=== PATIENT | male | born 1980 | race Two or more races ===

== ENCOUNTER 2016-10-11 17:04 | Inpatient (IN) | payer OTHER ==
[~2016-10-11] VITALS: Ht 167.6 cm; Wt 96.4 kg
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
[2016-10-11 17:28] LABS: BASOPHIL % 0.3 %; EOSINOPHIL # 0.2 K/uL (0.0-0.5); MPV 9.8 fl (9.4-12.4); NRBC % 0 /100WBC (0-0.00); RDW-CV 13.2 % (11.9-14.6)
[2016-10-11 18:03] LABS: BICARBONATE 23.7 mmol/L (18.0-23.0); PCO2 47 mmHg (35-45); PO2 58 mmHg (80-90); POTASSIUM 3.3 mEq/L (3.7-5.1); SODIUM 136 mEq/L (135-145)
[2016-10-11 18:18] LABS: INR - (THERAPEUTIC) 1.07 (0.92-1.07); PROTIME 11.2 SECONDS (9.8-11.4); PTT 22 SECONDS (25-32)
[2016-10-11 18:26] LABS: HEMOGLOBIN 12.7 g/dL (12.0-17.0); MCH 31.3 pg (27.0-34.0); RBC 4.06 M/uL (4.00-6.00); WBC 22.9 K/uL (4.0-11.0)
[2016-10-11 18:27] LABS: HEMATOCRIT 37.9 % (37.0-53.0); MCHC 33.5 gm/dL (32.0-36.5); MCV 93.3 fl (83.0-98.0)
[2016-10-11 18:28] LABS: LYMPHOCYTE # 2.5 K/uL (0.8-4.0); NEUTROPHIL # (ANC) 18.3 K/uL (1.4-9.0); NEUTROPHIL % 79.8 %; PLATELET COUNT 295 K/uL (150-450)
[2016-10-11 18:29] LABS: BASOPHIL # 0.1 K/uL (0.0-0.2); IMMATURE GRANULOCYTE # 0.2 K/uL (0.0-0.3); LYMPHOCYTE % 10.8 %; MONOCYTE # 1.7 K/uL (0.0-1.0); MONOCYTE % 7.3 %
[2016-10-11 18:30] LABS: IMMATURE GRANULOCYTE % 0.8 %
[2016-10-11 18:32] LABS: ANION GAP 7.3 (10.0-19.0); BLOOD UREA NITROGEN 22 mg/dL (6-24); CHLORIDE 107 mMol/L (96-110); CREATININE 1.3 mg/dL (0.6-1.3)
--- NOTE | 2016-10-12 05:52 | NUR ---
Significant Event: A/O, FORGETFUL BUT IMPROVING. POSSIBLE CONCUSSION. FOLLOWS ALL COMMANDS, MOVES ALL EXTREMITIES. VSS. 2L O2, ATTEMPTED TO WEAN HOWEVER PATIENT DESATTED TO 80% WHEN SLEEPING. ETCO2 ON, 37-42. LUNG SOUNDS CLEAR/DIM. HAS ONLY TAKE WATER FOR PO INTAKE, TOLERATING WELL. NO BM OVERNIGHT. GOOD UOP FROM [facility]. MORPHINE SEMICONDUCTOR DIES LOADER 2MG DEMAND WITH 8 MINUTE LOCKOUT. Follow up: WILL DECREASE FLUIDS TO TKO AFTER THIS BAG D/T PATIENT IMPROVING PO INTAKE.
[2016-10-12 06:18] LABS: BASOPHIL % 0.2 %; HEMATOCRIT 33.1 % (37.0-53.0); HEMOGLOBIN 10.9 g/dL (12.0-17.0); IMMATURE GRANULOCYTE % 0.4 %; LYMPHOCYTE # 0.9 K/uL (0.8-4.0); MCH 31.7 pg (27.0-34.0); MCHC 32.9 gm/dL (32.0-36.5); MCV 96.2 fl (83.0-98.0); MONOCYTE # 1.2 K/uL (0.0-1.0); NEUTROPHIL # (ANC) 8.9 K/uL (1.4-9.0); NEUTROPHIL % 80.4 %; NRBC % 0 /100WBC (0-0.00); PLATELET COUNT 223 K/uL (150-450); RBC 3.44 M/uL (4.00-6.00); RDW-CV 13.4 % (11.9-14.6); WBC 11.1 K/uL (4.0-11.0)
--- NOTE | 2016-10-12 19:29 | NUR ---
Significant Event: A/O X3, @ bedside entire shift, IV TKO L)FA, saline lock L)AC, 2 assist/gait belt/walker, up in chair all shift, stands @ bedside. RLE immobilizer on/stockinette drsg D/I, RUE ralph wrap/splint D/I, elevated on 2 pillows, edema to RUE, LLE lower drsg D/I, LLE upper drsg saturated w/ bloody drng, aware. drsg reinforced, CSM intact to all extremities. mason removed at 1430, no void yet, fair appetite, dozes when not interacting with staff or family, WASTE TRANSPORTATION TECHNICIAN morphine 2mg/8min lockout. resp. shallow, encouraged to use Incentive spirometry. o2 2l/nc, multiple abrasions/ecchymotic areas. neurologically intact. Follow up: NPO after MN for RUE surgery Thursday, needs consents signed.
[2016-10-13 06:23] LABS: HEMATOCRIT 24.1 % (37.0-53.0)
--- NOTE | 2016-10-13 07:24 | NUR ---
Significant Event: A/O. HR 50-70'S. SBP 90-120'S. AFEBRILE. WEANED TO 1L. HYPO BOWEL SOUNDS THIS AM. NO BM. NPO AT MIDNIGHT. VOID PER URINAL. STOOD WITH 2PA, TRANSFERED TO BED. CONTINUES WITH MS AIR EXPORT COORDINATOR, 8 ATTEMPTS, 5 DELIVERED. Follow up: ORIF OF R) ULNAR/RADIAL FX.
--- NOTE | 2016-10-13 13:40 | NUR ---
Patient in OR did not see him. Per demographics he lives in [place] with his . Will follow.
--- NOTE | 2016-10-13 15:00 | NUR ---
Significant Event:A/O X 3. Ambulates with hemiwalker 1 assist with gait belt. Up to the chair today and back to bed to prepare for OR. Reports no numbnness or tingling to any extremity. Follow up:
[2016-10-14 05:01] LABS: BASOPHIL % 0.3 %; EOSINOPHIL # 0.2 K/uL (0.0-0.5); EOSINOPHIL % 2.1 %; HEMATOCRIT 23.8 % (37.0-53.0); IMMATURE GRANULOCYTE % 0.4 %; LYMPHOCYTE # 1.5 K/uL (0.8-4.0); LYMPHOCYTE % 20.7 %; MCV 96.4 fl (83.0-98.0); MONOCYTE # 0.6 K/uL (0.0-1.0); MONOCYTE % 8.2 %; MPV 9.8 fl (9.4-12.4); NEUTROPHIL # (ANC) 4.9 K/uL (1.4-9.0); NEUTROPHIL % 68.3 %; NRBC % 0 /100WBC (0-0.00); RDW-CV 13.6 % (11.9-14.6); WBC 7.1 K/uL (4.0-11.0)
[2016-10-14 05:02] LABS: HEMOGLOBIN 7.8 g/dL (12.0-17.0); MCH 31.6 pg (27.0-34.0); MCHC 32.8 gm/dL (32.0-36.5); PLATELET COUNT 173 K/uL (150-450); RBC 2.47 M/uL (4.00-6.00)
[2016-10-14 05:19] LABS: ANION GAP 8.1 (10.0-19.0); BLOOD UREA NITROGEN 16 mg/dL (6-24); CALCIUM 7.6 mg/dL (8.5-10.5); CHLORIDE 109 mMol/L (96-110); CO2 28 mMol/L (22-32); POTASSIUM 4.1 mMol/L (3.7-5.1); SODIUM 141 mMol/L (135-145)
[2016-10-14 05:20] LABS: PHOSPHORUS 1.8 mg/dL (2.5-4.9)
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
--- NOTE | 2016-10-14 17:50 | NUR ---
Significant Event: Alert and oriented. Vital signs stable. O2 weaned off. Denies numbness/tingling. Ambulates short distances with platform walker and 1PA. Pain controlled with Percocet PRN. Good PO intake. Family present most of the day. Transferred to [address] [place] [address] at 1730. Follow up: continue
--- NOTE | 2016-10-15 04:51 | NUR ---
Significant Event: Alert/oriented x3. spent the night. VSS. CSM WNL. Splint and sling to right arm, ice applied. WBAT, 1 assist ambulation. Bilateral leg dressings have gauze and paper tape, little drainage. Room air. Saline locks in left antecubital and left posterior forearm. Morphine 2 mg IVP at 1847, 2345, 0217; 2 Percocets at 2110, 0217; Valium 5 mg at 2345. Voided well per bathroom, 1 small BM. Bilateral foot pumps. Follow up:
[2016-10-15 06:04] LABS: HEMATOCRIT 22.9 % (37.0-53.0)
[2016-10-15 06:05] LABS: HEMOGLOBIN 7.4 g/dL (12.0-17.0)
--- NOTE | 2016-10-15 09:00 | NUR ---
Made referral to Tess with [employer] for a Medicaid application. 1410 Introduced self/role to patient and his family, including the sister he plans to discharge home with. Needs a platform walker but no other DME. They know where to get one. I did explain it would have to be purchased privately or rented. Then we started to talk about Medicaid. Sister was under the impression they were on the top of the Medicaid list for review. I explained it generally take 1-2 months for approval and he would not be here that long. She is under the impression he will stay here until Medicaid goes thru. I will visit with Shaun again. She will be back tomorrow. Added my name to his marker board. 1420 Updated Tess, she will call sister because their is no application in the Medicaid system. 1440 Tess is meeting with the sister tomorrow. Will apply for disability and Medicaid but will take possible months to complete if he is even approved.
--- NOTE | 2016-10-15 16:56 | NUR ---
Pt alert and oriented. He has been up with assist standby with platform walker to bathroom. Has intact dressing Rt arm.Numbness and tingling Rt fingers. Dressing Rt knee changed and angus. Dressing Rt ankle changed, area swollen-stapled, drains sero-sang. Dressings x2 changed left hip. Distal dressing left hip has sero-sang drng on it. Dressing femur changed and angus and dry and intact. Pt CSM WNL lower extremities. Ice to Rt arm at times. Percocet 2 tabs x2 last at 1430. Pt voids well.
--- NOTE | 2016-10-16 04:20 | NUR ---
Significant Event: Alert/oriented x3. Pt requested he needed more sleep tonight. spent the night. Standby assist with platform walker to bathroom. Dressing to right arm intact, ice applied. Numbness/tingling right fingers. Dressing at right knee C/D/I, changed yesterday on day shift. Dressing right ankle C/D/I, changed yesterday on day shift. Dressings x2 on left hip has marked serosanguinous drainage. Dressing to femur changed yesterday on day shift - C/D/I. CSM WNL lower extremities. Voids well per bathroom. Saline locks at left antecubital and left posterior forearm. Valium 5 mg at 2251; 2 Percocets at 2251. Pt said pain is "better" tonight than yesterday. Has slept most of night since 1900. Bilateral foot pumps. VSS on room air. Follow up:
[2016-10-16 05:37] LABS: HEMATOCRIT 24.1 % (37.0-53.0)
--- NOTE | 2016-10-16 09:06 | NUR ---
PT SCREENED D/T LOS. EST NEEDS: 1700 KCALS, 77 GM PROTEIN, 1 ML/KCAL FLUIDS. PT IS EATING WELL. NO NUTRITION-RELATED DX IDENTIFIED. WILL ASSIST NEEDED.
--- NOTE | 2016-10-16 14:30 | NUR ---
Spoke to Sachi, eTss is to meet with them this afternoon. She will call me after that meeting. 1530 Tess let me know sister forgot so they will meet tomorrow at 1300 regarding a Medicaid application.
--- NOTE | 2016-10-16 19:05 | NUR ---
Significant Event: OOB WITH MIN ASSIST. PLANING ON DISMISSAL THURSDAY. CSM GOOD ALL EXTREM, DRSG INTACT TO BILAT LEGS, AND SPLIT CAST/SCARLET WRAP D/I...HAD PERCOCET 2 TAB AT 0830, OFFERED PAIN MED NUMEROUS TIMES THIS SHIFT AND PATIENT REFUSED, Follow up:
--- NOTE | 2016-10-17 06:55 | NUR ---
Shift Summary: Patient can ambulate with platform walker to the bathroom with standby assist. Good pain relief with one percocet at a time. Last one at 6, Valium at 2020. Refused Miralax and stool softner last night due to having a couple of loose stools during the day after receiving dulcolax supp. Tolerating regular diet very well. Can be WBAT bilateral legs.
--- NOTE | 2016-10-17 11:50 | NUR ---
Called [facility] and spoke to Mal, about a Visa card. Told to pick one up at ER. 1210 Got card from ER. 1320 Called [facility] about cost of medications that will be ordered. 1625 Meet with patients, his , his sister and Tess with [employer]. Gave them Visa card so they can rent platform walker. Went over cost of meds $10-$25. Might be able to just fill half at a time to see if the PRN's are even needed. Gave them pamphlet for [facility]. Denied any further needs.
[2016-10-17] MEDS ORDERED: CELEBREX200 MG PO (15:07)
[2016-10-17] MEDS ORDERED: SURFAK240 MG PO (15:08)
[2016-10-17] MEDS ORDERED: MIRALAX17 GM PO (15:09)
[2016-10-17] MEDS ORDERED: VALIUM5 MG PO (15:10)
[2016-10-17] MEDS ORDERED: PERCOCET 5-3251 EACH PO (15:10)
[2016-10-17] MEDS ORDERED: ASPIRIN325 MG PO (15:12)
== END 2016-10-17 16:30 | disposition disaster alternative care site (69) | DRG 480 ==
LOC: GACC 17:04 → GNTU 19:21 → GICU 19:21 → G3N 10-14 17:30
PROVIDERS: Family Medicine; Orthopaedic Surgery; Physician Assistant; ADMIT Surgery
PROC: 0QSG04Z Reposition Right Tibia with Internal Fixation Device, Open Approach (ICD-10-PCS; principal; 2016-10-11)
PROC: 0QSC04Z Reposition Left Lower Femur with Internal Fixation Device, Open Approach (ICD-10-PCS; principal; 2016-10-11)
PROC: 0PSK04Z Reposition Right Ulna with Internal Fixation Device, Open Approach (ICD-10-PCS; 2016-10-13)
PROC: 0PSH04Z Reposition Right Radius with Internal Fixation Device, Open Approach (ICD-10-PCS; 2016-10-13)
DX: S72.402A Unspecified fracture of lower end of left femur, initial encounter for closed fracture (principal); S82.201C Unspecified fracture of shaft of right tibia, initial encounter for open fracture type IIIA, IIIB, or IIIC; D62 Acute posthemorrhagic anemia; S52.601A Unspecified fracture of lower end of right ulna, initial encounter for closed fracture; S52.591A Other fractures of lower end of right radius, initial encounter for closed fracture; S82.452A Displaced comminuted fracture of shaft of left fibula, initial encounter for closed fracture; V43.52XA Car driver injured in collision with other type car in traffic accident, initial encounter; Y92.410 Unspecified street and highway as the place of occurrence of the external cause; N50.1 Vascular disorders of male genital organs
CPT/HCPCS: C1713; C1776; G0390; G0480; J0690; J1650; J2175; J2270; J2405; J2704; J3010; J7030; J7050

== ENCOUNTER → 2016-10-11 | Outpatient (CLI) | payer OTHER ==
[~2016-10-11] MED LIST: ASPIRIN325 MG PO; CELEBREX200 MG PO; MIRALAX17 GM PO; PERCOCET 5-3251 EACH PO; SURFAK240 MG PO; VALIUM5 MG PO
== END | disposition disaster alternative care site (69) ==
LOC: GAIR 16:50
DX: S79.922A Unspecified injury of left thigh, initial encounter (principal); M79.652 Pain in left thigh; M79.661 Pain in right lower leg; S59.911A Unspecified injury of right forearm, initial encounter; S69.91XA Unspecified injury of right wrist, hand and finger(s), initial encounter; R21 Rash and other nonspecific skin eruption; V59.60XA Unspecified occupant of pick-up truck or van injured in collision with unspecified motor vehicles in traffic accident, initial encounter
CPT/HCPCS: A0422; A0431; A0436; J2405; J3010; J7030